=== PATIENT | female | born 1940 | race Caucasian/White ===

== ENCOUNTER 2021-02-16 16:17 | Emergency (ER) | payer MEDICARE | END 2021-02-16 17:35 | disposition home or self-care (01) | LOC: FER 16:17 | DX: S76.012A Strain of muscle, fascia and tendon of left hip, initial encounter (principal); I10 Essential (primary) hypertension; Z79.899 Other long term (current) drug therapy; W17.89XA Other fall from one level to another, initial encounter; Y92.009 Unspecified place in unspecified non-institutional (private) residence as the place of occurrence of the external cause | CPT/HCPCS: 73502 ==

== ENCOUNTER 2021-05-21 15:28 | Emergency (ER) | payer MEDICARE ==
[2021-05-21 16:58] LABS: BASOPHIL 1.1 % (0-2); EOSINOPHIL 0 % (0-7); HCT 39.2 % (37.0-47.0); HGB 12.6 g/dl (12.5-16.0); LYMPHOCYTE 45.6 % (15-48); MCH 29.8 pg (25.0-31.0); MCHC 32.1 g/dL (32.0-36.0); MCV 92.7 fL (78.0-100.0); MONOCYTE 7.9 % (0-12); MPV 11.2 fL (6.0-9.5); NEUTROPHIL 45.2 % (41-80); NRBC 0; PLT 160 K/uL (150-400); RBC 4.23 M/uL (4.20-5.40); WBC 5.6 K/uL (4.0-10.5)
[2021-05-21 16:58] LABS: BILIRUBIN NEGATIVE (NEGATIVE); BLOOD NEGATIVE Ery/uL (NEGATIVE); CLARITY CLEAR (CLEAR); COLOR YELLOW (YELLOW); GLUCOSE (U) NORMAL (NORMAL); LEUKOCYTES NEGATIVE Leu/uL (NEGATIVE); NITRITE NEGATIVE (NEGATIVE); PROTEIN NEGATIVE (NEGATIVE); UROBILINOGEN 0.2 mg/dL (0.2-1.0); pH 5.5 (5.0-9.0)
[2021-05-21 17:14] LABS: ALBUMIN 3.9 g/dL (3.4-5.0); BILIRUBIN - TOTAL 0.4 mg/dL (0.2-1.0); BUN/CREAT RATIO (CALC) 34.7 RATIO; CREATININE 0.95 mg/dL (0.51-0.95); GLOBULIN (CALCULATION) 3.6 g/dL; POTASSIUM 4.8 mmol/L (3.5-5.1); TOTAL PROTEIN 7.5 g/dL (6.4-8.2)
== END 2021-05-21 21:20 | disposition home or self-care (01) ==
LOC: FER 15:28
PROVIDERS: Emergency Medicine
DX: N28.89 Other specified disorders of kidney and ureter (principal); R10.13 Epigastric pain; R00.0 Tachycardia, unspecified; I10 Essential (primary) hypertension; E78.5 Hyperlipidemia, unspecified; Z87.19 Personal history of other diseases of the digestive system; Z90.49 Acquired absence of other specified parts of digestive tract; Z79.899 Other long term (current) drug therapy; Z88.0 Allergy status to penicillin; Z88.2 Allergy status to sulfonamides
CPT/HCPCS: 36415; 80053; 81001; 82150; 83690; 85025; J7040; Q9967

== ENCOUNTER 2021-07-10 17:24 | Inpatient (IN) | payer MEDICARE ==
[~2021-07-10] VITALS: Ht 160 cm; Wt 52.2 kg
[2021-07-11 03:17] LABS: BASOPHIL 0.3 % (0-2); EOSINOPHIL 0 % (0-7); HCT 39.4 % (37.0-47.0); HGB 12.8 g/dl (12.5-16.0); LYMPHOCYTE 13.1 % (15-48); MCH 28.6 pg (25.0-31.0); MCHC 32.5 g/dL (32.0-36.0); MCV 88.1 fL (78.0-100.0); MONOCYTE 7.7 % (0-12); MPV 11.1 fL (6.0-9.5); NEUTROPHIL 78.6 % (41-80); NRBC 0; PLT 115 K/uL (150-400); RBC 4.47 M/uL (4.20-5.40); WBC 7.5 K/uL (4.0-10.5)
[2021-07-11 03:25] LABS: INR 1.08 (0.9-1.2); PROTHROMBIN TIME 13.4 SECONDS (11.8-13.4)
[2021-07-11 03:36] LABS: ALBUMIN 3.7 g/dL (3.4-5.0); BILIRUBIN - TOTAL 0.6 mg/dL (0.2-1.0); BUN/CREAT RATIO (CALC) 29.6 RATIO; CREATININE 0.81 mg/dL (0.51-0.95); GLOBULIN (CALCULATION) 3.3 g/dL; POTASSIUM 4.2 mmol/L (3.5-5.1)
[2021-07-11] MEDS ORDERED: LIPITOR 10MG TA10 MG PO (07:27)
[2021-07-11] MEDS ORDERED: HCTZ25 MG PO (07:28)
[2021-07-11] MEDS ORDERED: PRINIVIL10 MG PO (07:28)
[2021-07-11] MEDS ORDERED: BAYER CHEWABLE81 MG PO (07:29)
[2021-07-11] MEDS ORDERED: NORVASC5 MG PO (07:29)
[2021-07-11] MEDS ORDERED: PERCOCET 5-3251 EACH PO (07:37)
[2021-07-11 10:45] LABS: BILIRUBIN NEGATIVE (NEGATIVE); BLOOD 2+ Ery/uL (NEGATIVE); CLARITY CLEAR (CLEAR); COLOR YELLOW (YELLOW); GLUCOSE (U) NORMAL (NORMAL); LEUKOCYTES NEGATIVE Leu/uL (NEGATIVE); NITRITE NEGATIVE (NEGATIVE); PROTEIN 1+ mg/dL (NEGATIVE); UROBILINOGEN 0.2 mg/dL (0.2-1.0)
[2021-07-11 10:56] LABS: URINARY RBC 20-50; URINARY WBC RARE
[2021-07-12 05:54] LABS: BASOPHIL 0.1 % (0-2); EOSINOPHIL 0 % (0-7); HCT 32.2 % (37.0-47.0); HGB 10.6 g/dl (12.5-16.0); LYMPHOCYTE 10.9 % (15-48); MCH 29.1 pg (25.0-31.0); MCHC 32.9 g/dL (32.0-36.0); MCV 88.5 fL (78.0-100.0); MONOCYTE 8.2 % (0-12); MPV 12.2 fL (6.0-9.5); NEUTROPHIL 80.5 % (41-80); NRBC 0; PLT 105 K/uL (150-400); RBC 3.64 M/uL (4.20-5.40); RDW 13.3 % (11.5-14.0)
[2021-07-12 06:14] LABS: BUN/CREAT RATIO (CALC) 25.2 RATIO; CREATININE 1.23 mg/dL (0.51-0.95); POTASSIUM 5.2 mmol/L (3.5-5.1)
[2021-07-13 07:28] LABS: BASOPHIL 0.3 % (0-2); EOSINOPHIL 0 % (0-7); HCT 36.2 % (37.0-47.0); HGB 11.6 g/dl (12.5-16.0); LYMPHOCYTE 12.1 % (15-48); MCH 28.6 pg (25.0-31.0); MCV 89.2 fL (78.0-100.0); MONOCYTE 6.6 % (0-12); MPV 12.4 fL (6.0-9.5); NEUTROPHIL 80.6 % (41-80); NRBC 0; PLT 101 K/uL (150-400); RBC 4.06 M/uL (4.20-5.40); RDW 13.3 % (11.5-14.0); WBC 9.2 K/uL (4.0-10.5)
[2021-07-13 07:53] LABS: BUN/CREAT RATIO (CALC) 27.9 RATIO; CREATININE 1.36 mg/dL (0.51-0.95); POTASSIUM 4.7 mmol/L (3.5-5.1)
[2021-07-13] MEDS ORDERED: FEOSOL325 MG PO (11:21)
[2021-07-13] MEDS ORDERED: OXYCODONE-ACET1 EAC1 PO (11:21)
== END 2021-07-13 14:38 | disposition home health service (06) | DRG 522 ==
LOC: FER 17:24 → FMS 23:17
PROVIDERS: Nurse Practitioner; Nurse Practitioner Adult Health; Orthopaedic Surgery; ADMIT Internal Medicine
PROC: 0SR90JA Replacement of Right Hip Joint with Synthetic Substitute, Uncemented, Open Approach (ICD-10-PCS; principal; 2021-07-11 14:30)
DX: S72.011A Unspecified intracapsular fracture of right femur, initial encounter for closed fracture (principal); C64.9 Malignant neoplasm of unspecified kidney, except renal pelvis; I10 Essential (primary) hypertension; R01.1 Cardiac murmur, unspecified; Z20.822 Contact with and (suspected) exposure to COVID-19; Z96.642 Presence of left artificial hip joint; I45.10 Unspecified right bundle-branch block; Z88.0 Allergy status to penicillin; Z90.710 Acquired absence of both cervix and uterus; Z90.49 Acquired absence of other specified parts of digestive tract; Z98.890 Other specified postprocedural states; Z88.2 Allergy status to sulfonamides; Z88.5 Allergy status to narcotic agent; W01.0XXA Fall on same level from slipping, tripping and stumbling without subsequent striking against object, initial encounter; Y92.009 Unspecified place in unspecified non-institutional (private) residence as the place of occurrence of the external cause
CPT/HCPCS: 36415; 71045; 72170; 73501; 73552; 73560; 76000; 80048; 80053; 81001; 84484; 85025; 85610; 86850; 86900; 86901; 88305; 88342; 93005; 94010; 94760; 97116; 97162; 97166; 97530; 97530-GP; 97535; C1713; C1776; J0171; J1885; J2250; J2405; J2795; J3010; J7120; U0002